=== PATIENT | female | born 1935 | race Caucasian/White ===

== ENCOUNTER 2016-10-11 11:54 | Emergency (ER) | payer MEDICARE, OTHER ==
--- NOTE | ~2016-10-11 | CR72 ---
[facility] A Service of [facility] RADIOLOGY TEXT RESULTS PATIENT: RERE SHARMA LOCATION: SED : 35 UNIT #: [id number] AGE: [address]: Kimani Galvez MD SEX: F ORDER DR: [id number] [address] [address] [id number] E MR#: [id number] Acc #: [id number] NAME: RERE SHARMA : 1935 SEX: F STUDY DATE/TIME: 10/11/2016 11:07 UNIT: SED ROOM: STUDY DESCRIPTION: CR Chest Single View Portable Attending Physician: Kimani Galvez M.D. Ordering Physician: Kimani Galvez M.D. Primary Care Physician: Modesta Bush A.P.R.N. MEDICAL IMAGING REPORT This report is preliminary unless electronic signature is present. EXAM Portable chest. INDICATION 80-year-old female with chest congestion this morning and generalized weakness. COMPARISON STUDIES Comparison with 11/14/2013. FINDINGS Prior sternotomy and CABG. Heart size stable. Tortuous aorta. 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 There is a second rounded density laterally along the right hemidiaphragm which was not demonstrated on the prior radiograph. It may be another new area of eventration of the diaphragm or possibly an infiltrate. Consider obtaining a PA and lateral chest x-ray for better characterization. IMPRESSION No definite acute finding. 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 It may represent a new area of eventration or possibly an infiltrate. Would consider obtaining a PA and lateral chest x-ray for better characterization. Dictated by... Willie Delatorre M.D. THIS IS AN ELECTRONICALLY VERIFIED REPORT Willie Delatorre M.D. at 10/11/2016 4:16 PM [facility] A Service of [facility] RADIOLOGY TEXT RESULTS PATIENT: RERE SHARMA LOCATION: SED : 35 UNIT #: [id number] AGE: [address]: Kimani Galvez MD SEX: F ORDER DR: Uday TD: 10/11/2016 14:09 JOB #: [id number] MEDICAL IMAGING REPORT
--- NOTE | ~2016-10-11 | EKG ---
PATIENT: RERE SHARMA UNIT #: [id number] Ventricular Rate: 97 BPM Atrial Rate: 98 BPM QRS Duration: 84 ms Q-T Interval: 314 ms QTC Calculation(Bezet): 398 ms Calculated R [place]: 8 degrees Calculated T [place]: 167 degrees Diagnosis Line: Sinus rhythm with Premature atrial complexes Diagnosis Line: Left ventricular hypertrophy with repolarization Diagnosis Line: abnormality Diagnosis Line: Abnormal ECG Diagnosis Line: Diagnosis Line: Confirmed by ROSARIO WHITLEY MD ([id number]) on 10/13/2016 Diagnosis Line: 5:36:08 PM INTERPRETING MD: GUTIERREZ JOSHUA
[2016-10-11 11:17] LABS: BASOPHIL% 0.6 % (0-2.5); EOSINOPHIL# 0.1 X10e3 (0-0.7); EOSINOPHIL% 1.1 % (0.0-7.0); HEMATOCRIT 44.1 % (35.0-45.0); HEMOGLOBIN 14.7 gm/dL (12.0-16.0); LYMPHOCYTE# 2.2 X10e3 (1.0-3.5); LYMPHOCYTE% 35.8 % (17.0-45.0); MEAN CELL VOLUME 91.2 FL (83-96); MEAN CORPUSCULAR HEMOGLOBIN 30.3 PG (28-34); MEAN CORPUSCULAR HGB CONC 33.3 g/dL (30-36); MEAN PLATELET VOLUME 8.8 FL (6.5-11.5); MONOCYTE# 0.6 X10e3 (0-1.0); MONOCYTE% 9.4 % (3.0-12.0); NEUTROPHIL# 3.2 X10e3 (1.5-7.1); NEUTROPHIL% 53.1 % (40-75); PLATELET COUNT 174 X10e3 (140-420); RED BLOOD COUNT 4.84 X10e (3.90-5.30); RED CELL DISTRIBUTION WIDTH 13.2 % (11.0-15.5); WHITE BLOOD COUNT 6.1 X10e3 (4.0-10.5)
[2016-10-11 11:21] LABS: DIFF IND NO
[2016-10-11 11:35] LABS: POC - CKMB 2.6 ng/mL (0.0-7.9); POC - MYOGLOBIN 95.7 ng/mL (0.0-169.0); POC - TROPONIN <0.05 ng/mL (<=0.05)
[2016-10-11 11:41] LABS: PROTHROMBIN TIME (PATIENT) 11.5 SECONDS (9.5-12.4)
[2016-10-11 11:44] LABS: ALBUMIN SERUM 4.5 g/dL (3.5-5.0); ALKALINE PHOSPHATASE 100 U/L (32-92); ALT (SGPT) 19 U/L (10-40); AST (SGOT) 25 U/L (10-42); BILIRUBIN, DIRECT 0.1 mg/dL (0.0-0.2); BILIRUBIN,INDIRECT 1.5 mg/dL (0.0-0.9); BILIRUBIN,TOTAL 1.6 mg/dL (0.2-2.0); BLOOD UREA NITROGEN 19 mg/dL (9-23); BUN/CREATININE RATIO 23.75; CALCIUM SERUM 9.3 mg/dL (8.4-10.2); CARBON DIOXIDE 26 mmol/L (22-31); CHLORIDE 102 mmol/L (100-111); CREATININE SERUM 0.8 mg/dL (0.6-1.4); GLOM FILT RATE Estimated ABOVE60 mL/min (>60); GLUCOSE FASTING 151 mg/dL (70-110); POTASSIUM 3.6 mmol/L (3.5-5.1); PROTEIN TOTAL SERUM 7.6 g/dL (6.0-8.3); SODIUM 138 mmol/L (135-145)
[~2016-10-11 11:54] MED LIST: ALBUTEROL 0.5ML; ALBUTEROL MININEB; ALBUTEROL MININEB NEB; ALBUTEROL17 GM INH; ALOE TP; ALPRAZOLAM PO; ALPRAZOLAM0.25 MG PO; AMLODIPINE BESYL5 MG PO; ANTIVERT PO; ASPIRIN PO; ASPIRIN81 MG PO; ASTELIN137 MCG INH; CLARINEX5 MG PO; COLON HEALTH PROBIOT PO; COMBIVENT INH14.7 GM INH; CORICIDIN HBP F1 TAB PO; CORTAID TP; FAMVIR500 M1; FAMVIR500 M1 PO; FISH OIL 1,0001 CAP PO; FLONASE 0.05% N16 G1; IPRATROPIUM0.2 MG/ML; IPRATROPIUM0.2 MG/ML NEB; LEVAQUIN PO; LICORICE ROOT; MEGA RED KRILL OIL PO; NASACORT AQ16.5 GM; NORVASC PO; PRILOSEC PO; RESTASIS32 EA OD; RESTASIS32 EA OP; SEREVENT D50 MCG/DIS PO; SYNTHROID PO; ZITHROMAX PO; ZYRTEC PO
== END 2016-10-11 12:51 | disposition home or self-care (01) ==
LOC: SED 11:54
PROVIDERS: Emergency Medicine
DX: J40 Bronchitis, not specified as acute or chronic (principal); J44.9 Chronic obstructive pulmonary disease, unspecified; K21.9 Gastro-esophageal reflux disease without esophagitis; Z88.0 Allergy status to penicillin
CPT/HCPCS: 36415; 71010; 80048; 80076; 82553; 83874; 83880; 84484; 85025; 85610; 93005; 99283

== ENCOUNTER 2017-01-14 14:26 | Emergency (ER) | payer MEDICARE, OTHER ==
[2017-01-14] MEDS ORDERED: [UNRECOGNIZED DRUG - OTHER] (14:29)
[2017-01-14] MEDS ORDERED: NORVASC PO (14:29)
[2017-01-14] MEDS ORDERED: RESTASIS EYE DROPS (14:29)
== END 2017-01-14 15:27 | disposition home or self-care (01) ==
LOC: SED 14:26
DX: M25.562 Pain in left knee (principal); J45.909 Unspecified asthma, uncomplicated; Z88.0 Allergy status to penicillin; Z79.82 Long term (current) use of aspirin; Z87.891 Personal history of nicotine dependence
CPT/HCPCS: 96372; 99283; J1885

== ENCOUNTER 2017-01-31 17:52 | Emergency (ER) | payer MEDICARE, OTHER ==
[~2017-01-31 17:52] MED LIST changes: +RESTASIS EYE DROPS; +[UNRECOGNIZED DRUG - OTHER]
== END 2017-01-31 19:06 | disposition left against medical advice (07) ==
LOC: CED 17:52
DX: Z53.21 Procedure and treatment not carried out due to patient leaving prior to being seen by health care provider (principal)